=== PATIENT | male | born 1935 | race Caucasian/White ===

== ENCOUNTER → 2017-01-09 | Outpatient (CLI) | payer MEDICARE, BC ==
--- NOTE | 2017-01-09 11:31 | RADIOLOGY REPORT (SQ) ---
EXAM DESCRIPTION: CAROTID DOPPLER COMPLETED DATE/TIME: 01/09/2017 10:42 am REASON FOR STUDY: SYNCOPE R55 SYNCOPE AND COLLAPSE COMPARISON: 11/10/2014 TECHNIQUE: Grayscale ultrasound, Doppler velocity and spectra, and color Doppler images acquired of the extra-cranial carotid and vertebral arteries. Images stored on PACS. LIMITATIONS: None. FINDINGS: RIGHT CAROTID CCA Velocities: Within normal limits. ICA Velocities Peak systolic 0.79 m/s. End diastolic 0.16 m/s. Proximal ICA/CCA peak systolic ratio 1.01. Spectra normal. No significant plaque. LEFT CAROTID CCA Velocities: Within normal limits. ICA Velocities Peak systolic 0.66 m/s. End diastolic 0.13 m/s. Proximal ICA/CCA peak systolic ratio 1.4. Spectra normal. No significant plaque. VERTEBRAL ARTERIES: Antegrade flow. Normal waveforms. SUBCLAVIAN ARTERIES: No finding. OTHER: No other significant finding. IMPRESSION: NO HEMODYNAMICALLY SIGNIFICANT STENOSIS. No significant change since the previous study . COMMENT: Quality ID #[id number]: Velocity criteria are extrapolated from the diameter data as defined by t he Society of Radiologists in Ultrasound Consensus Conference. Radiology 2003: 229; 340-346. TECHNICAL DOCUMENTATION: JOB ID: [id number] [employer]- All Rights Reserved
== END ==
LOC: SP 09:59
PROVIDERS: ATTEND Family Medicine
DX: R55 Syncope and collapse (principal)
CPT/HCPCS: 93880

== ENCOUNTER → 2018-08-07 | Outpatient (CLI) | payer MEDICARE, BC ==
--- NOTE | 2018-08-08 17:44 | XCELERA REPORT ---
[address] [address] Lower Extremity Arterial Evaluation Name: NOA CASEY Age: 83 yrs Gender: Male : 1935 Patient Status: Outpatient Patient Location: [facility] Study Date: 08/07/2018 02:56 PM Procedure: A color flow and duplex scan of the lower extremity arteries was performed bilaterally with velocity and waveform anaylsis. Ankle brachial indicies performed. Reason For Study: CLAUDICATION Ordering Physician: ZBIGNIEW EARLY Performed By: Stella Salomon Measurements and Calculations Right Left PLANT CHIEF PSV -127.5 -108.6cm/sec Prox PFA PSV 61.5 47.3 cm/sec Prox SFA PSV 88.3 84.8 cm/sec Mid SFA PSV 76.0 95.9 cm/sec Dist SFA PSV 89.6 60.6 cm/sec Prox Pop A PSV 75.5 72.6 cm/sec Dist MARY JANE PSV 39.5 63.6 cm/sec Dist HVAC DESIGN ENGINEER PSV 33.5 28.6 cm/sec Ramon Pedis PSV 39.9 64.5 cm/sec Right Side Arterial Evaluation Normal velocity and triphasic waveforms noted from the Common Femoral artery to the Popliteal. . Biphasic with low normal velocity in the infrageniculate vessels Ankle Brachial index not obtained due to non compressibility. Left Side Arterial Evaluation Normal velocity and triphasic waveforms noted from the Common Femoral artery to the Popliteal. . Biphasic with low normal velocity in the infrageniculate vessels Ankle Brachial index not obtained due to non compressibility. Interpretation Summary Moderate hemodynamically significant lesions in the bilateral lower extremities, on duplex imaging, at rest. No focal stenosis identified, some arterial compromise suggested at the infrageniculate level. Non compressible MIKO's support the presence of arteriosclerosis. : ZBIGNIEW EARLY > David Peralta
== END ==
LOC: SP 16:11
PROVIDERS: ATTEND Family Medicine
DX: I70.213 Atherosclerosis of native arteries of extremities with intermittent claudication, bilateral legs (principal)
CPT/HCPCS: 93925